=== PATIENT | male | born 1935 | race Caucasian/White ===

== ENCOUNTER 2016-11-11 08:52 | Day surgery (SDC) | payer MEDICARE, BC ==
[~2016-11-11] VITALS: Ht 172.7 cm; Wt 75.3 kg
[2016-11-11] VITALS (8 sets, daily range): BP systolic 99–137; BP diastolic 62–71; PULSE 70–81; TEMP 98.1–98.4
[~2016-11-11 08:52] MED LIST: ASPIRIN 81M81 MG/TA2 PO; CIPRO 500MG TA500 MG PO; FERATE27 MG PO; FLOMAX 0.40.4 MG/CAP PO; MULTIPLE VITAMI1 CAP PO; NORCO 325 MG-51 TAB PO; PREVACID 30MG30 M1 PO; PROSCAR 5MG5 MG PO; PYRIDIUM 100MG100 MG PO; SENOKOT S 50 MG1 TAB PO; ZYRTEC 10MG10 MG PO
[2016-11-11] MEDS ORDERED: PREVACID 30MG30 M1 PO (10:59)
[2016-11-11] MEDS ORDERED: ASPIRIN 81M81 MG/TA2 PO (10:59)
[2016-11-11] MEDS ORDERED: MULTI VITAMINS1 TAB PO (11:00)
[2016-11-11] MEDS ORDERED: MIRALAX PA17 GM/Dose PO (11:01)
[2016-11-11] MEDS ORDERED: TYLENOL 500MG500 MG PO (11:01)
[2016-11-11] MEDS ORDERED: FERROUS SULFATE65 MG PO (11:01)
[2016-11-11] MEDS ORDERED: NORCO 325 MG-51 TAB PO (13:28)
== END 2016-11-11 15:25 | disposition home or self-care (01) ==
LOC: SDCO 08:52
DX: K40.90 Unilateral inguinal hernia, without obstruction or gangrene, not specified as recurrent (principal); D17.6 Benign lipomatous neoplasm of spermatic cord
CPT/HCPCS: A4315; C1781; E0710; J0690; J1100; J1885; J2405; J2704; J3010; J7120

== ENCOUNTER → 2020-02-29 | Outpatient (CLI) | payer MEDICARE, BC ==
[~2020-02-29] MED LIST changes: +FERROUS SULFATE65 MG PO; +MIRALAX PA17 GM/Dose PO; +MULTI VITAMINS1 TAB PO; +TYLENOL 500MG500 MG PO
== END ==
LOC: COL.RAD 07:59
DX: G31.9 Degenerative disease of nervous system, unspecified (principal); I67.82 Cerebral ischemia; H70.892 Other mastoiditis and related conditions, left ear; H66.92 Otitis media, unspecified, left ear

== ENCOUNTER → 2020-05-02 | Outpatient (CLI) | payer MEDICARE, BC ==
[2020-05-02 19:31] LABS: COLLECTION METHOD CLEAN CATCH
[2020-05-02 20:15] LABS: MUCOUS Present /lpf; PH 5 (5-8); SQUAMOUS EPITHELIAL None Seen /hpf; URINE APPEARANCE Clear; URINE BACTERIA None Seen /hpf; URINE BILIRUBIN Negative (NEGATIVE); URINE BLOOD Negative (NEGATIVE); URINE COLOR Yellow; URINE GLUCOSE Negative (NEGATIVE); URINE KETONE Negative (NEGATIVE); URINE LEUKOCYTE ESTERASE Negative (NEGATIVE); URINE NITRATE Negative (NEGATIVE); URINE PROTEIN(semi-quant) Negative (NEGATIVE); URINE RBC 0-2 /hpf; URINE UROBILINOGEN >=4.0 mg/dL (NEGATIVE); URINE WBC 0-2 /hpf
== END ==
LOC: ZCOL.LAB 19:18
PROVIDERS: Internal Medicine
DX: R45.1 Restlessness and agitation (principal)

== ENCOUNTER → 2020-06-05 | Outpatient (CLI) | payer MEDICARE, BC | LOC: ZCOL.LAB 10:12 | DX: L08.9 Local infection of the skin and subcutaneous tissue, unspecified (principal) ==

== ENCOUNTER → 2020-06-30 | Outpatient (CLI) | payer MEDICARE, BC | LOC: ZCOL.LAB 18:01 | DX: L89.150 Pressure ulcer of sacral region, unstageable (principal) ==

== ENCOUNTER → 2020-07-01 | Outpatient (CLI) | payer MEDICARE, BC ==
[2020-07-01 09:34] LABS: BASO # 0.1 (0.0-0.2); BASO % 0.4 % (0.0-2.0); EOS # 0.1 (0.0-0.7); EOS % 0.4 % (0-4.0); GRAN # 11.4 (1.4-6.5); GRAN % 81.1 % (42.2-75.2); HEMATOCRIT 38.8 % (42.0-52.0); HEMOGLOBIN 13.2 g/dl (13.5-18.0); LYMPH # 1.6 (1.2-3.4); LYMPH % 11.1 % (20.0-51.0); MEAN CELL VOLUME 96 fl (80.0-100.0); MEAN CORPUSCULAR HEMOGLOBIN 33 pg (27.0-31.0); MEAN CORPUSCULAR HGB CONC 34 g/dl (33.0-37.0); MEAN PLATELET VOLUME 9.4 fl (7.4-10.4); MONO # 0.9 (0.1-0.6); MONO % 6.4 % (1.7-9.3); PLATELET COUNT 311 K/mm3 (130-400); RED BLOOD COUNT 4.06 M/mm3 (4.20-5.60); REDCELL DISTRIBUTION WIDTH-CV 13.2 % (11.5-14.5)
== END ==
LOC: ZCOL.LAB 09:15
PROVIDERS: Family Medicine
DX: R50.9 Fever, unspecified (principal)